=== PATIENT | male | born 1960 | race Caucasian/White ===

== ENCOUNTER 2017-10-08 09:58 | Emergency (ER) | payer SELFPAY ==
[~2017-10-08] VITALS: Ht 180.3 cm; Wt 100.0 kg
[2017-10-08 10:05] VITALS: BP 136/63; PULSE 76; RESP 16; TEMP 97.9; O2SAT 97
[2017-10-08] MEDS ORDERED: SODIUM CHLOR 0.9% 1000 ML INJ 1,000 ML IV SCH (10:20)
[2017-10-08] MEDS ORDERED: CLINDAMYCIN 900 MG/NS PREMIX 50 ML IV ONE (10:30)
[2017-10-08] MEDS ORDERED: SODIUM CHLORIDE 0.9% FLUSH 10 ML FLUSH IV FLUSH PRN (10:30)
[2017-10-08] MEDS ORDERED: KETOROLAC TROMETHAMINE 30 MG/ML (IVP) VIAL IVP ONE (10:30)
[2017-10-08 10:59] LABS: AUTOMATED NEUTROPHIL # 4.9 TH/MM3 (1.8-7.7); BASOPHIL % 0.4 % (0.0-2.0); EOSINOPHIL # 0.4 TH/MM3 (0-0.4); EOSINOPHIL % 4.9 % (0.0-4.0); HEMATOCRIT 39.8 % (39.0-51.0); HEMOGLOBIN 13.5 GM/DL (13.0-17.0); LYMPH % 19.8 % (9.0-44.0); LYMPHOCYTE # 1.4 TH/MM3 (1.0-4.8); MEAN CELL VOLUME 96.1 FL (80.0-100.0); MEAN CORPUSCULAR HEMOGLOBIN 32.6 PG (27.0-34.0); MEAN CORPUSCULAR HGB CONC 33.9 % (32.0-36.0); MEAN PLATELET VOLUME 8.1 FL (7.0-11.0); MONO % 7.3 % (0.0-8.0); MONOCYTE # 0.5 TH/MM3 (0-0.9); NEUT % 67.6 % (16.0-70.0); PLATELET COUNT 250 TH/MM3 (150-450); RED BLOOD COUNT 4.14 MIL/MM3 (4.50-5.90); RED CELL DISTRIBUTION WIDTH 12.9 % (11.6-17.2); WHITE BLOOD COUNT 7.2 TH/MM3 (4.0-11.0)
[2017-10-08 11:14] LABS: ALT (GPT) 19 U/L (12-78); AST (GOT) 11 U/L (15-37); BICARBONATE 23.1 MEQ/L (21.0-32.0); BLOOD UREA NITROGEN 10 MG/DL (7-18); CALCIUM 8.1 MG/DL (8.5-10.1); CHLORIDE 110 MEQ/L (98-107); CREATININE 1.04 MG/DL (0.60-1.30); GLOMERULAR FILTRATION RATE 74 ML/MIN (>89); GLUCOSE,RANDOM 137 MG/DL (74-106); SODIUM (NA) 142 MEQ/L (136-145)
[2017-10-08 11:16] LABS: ALKALINE PHOSPHATASE 100 U/L (45-117); TOTAL BILIRUBIN ADULT 0.6 MG/DL (0.2-1.0); TOTAL PROTEIN 6.7 GM/DL (6.4-8.2)
[2017-10-08] MEDS ORDERED: IBUP1TAB7 PO (11:30)
[2017-10-08] MEDS ORDERED: CEPH-460 PO (11:30)
[2017-10-08] MEDS ORDERED: BACT800T5 PO (11:30)
--- NOTE | 2017-10-08 11:36 | PD ---
HPI Chief Complaint: Pain: Acute or Chronic Time Seen by Provider: 10:20 Travel History International Travel<30 days: No Contact w/Intl Traveler<30days: No Traveled to known affect area: No History of Present Illness HPI 57-year-old male presents emergency department with pain, erythema, swelling, and warmth to the right posterior elbow over the past 4 days. Patient denies any specific injury. He states is just gotten worse over the past several days. Patient denies fever, chills, or drainage. No history of MRSA in the past. Patient states he is unable to extend the left arm completely secondary to discomfort. Pain is currently 7 out of 10. He has no weakness or loss of function. No numbness or tingling. He has no known drug allergies. PFSH Past Medical History Medical History: Denies Significant Hx Tetanus Vaccination: Unknown Influenza Vaccination: No Past Surgical History Surgical History: No Previous Surgery Social History Alcohol Use: No Tobacco Use: No Substance Use: No Allergies-Medications (Allergen,Severity, Reaction): Coded Allergies: No Known Allergies (Unverified , 10/08/17) Reported Meds & Prescriptions Reported Meds & Active Scripts Active Ibuprofen 800 Mg Tab 800 Mg PO Q8H PRN Keflex (Cephalexin) 500 Mg Capsule 500 Mg PO QID 7 Days Bactrim DS (Sulfamethoxazole-Trimethoprim) 800-160 Mg Tab 1 Tab PO BID Review of Systems Except as stated in HPI: all other systems reviewed are Neg General / Constitutional: No: Fever Eyes: No: Visual changes HENT: No: Headaches Cardiovascular: No: Chest Pain or Discomfort Respiratory: No: Shortness of Breath Gastrointestinal: No: Abdominal Pain Genitourinary: No: Dysuria Musculoskeletal: Positive: Limited ROM, Pain Skin: No Rash Neurologic: No: Weakness Psychiatric: No: Depression Endocrine: No: Polydipsia Hematologic/Lymphatic: No: Easy Bruising Physical Exam Narrative GENERAL: Patient appears in mild distress. SKIN: Warm and dry. Normal color. Normal turgor. Patient has an area of induration and erythema and warmth over the left olecranon. I do not feel that this is a deep abscess at this time. Patient also discussed with Dr. Hope who sees the patient as well and feels this is a localized cellulitis at this time. I&D not recommended. HEAD: Atraumatic. Normocephalic. EYES: Pupils equal and round. No scleral icterus. No injection or drainage. ENT: No nasal bleeding or discharge. Mucous membranes pink and moist. Pharynx is clear. Airway is patent. NECK: Trachea midline. Supple and nontender without lymphadenopathy. CARDIOVASCULAR: Regular rate and rhythm. RESPIRATORY: No accessory muscle use. Clear to auscultation. Breath sounds equal bilaterally. MUSCULOSKELETAL: Extremities without clubbing, cyanosis, or edema. No obvious deformities. Patient has tenderness along the left posterior elbow consistent with cellulitis. Range of motion of left elbow is limited secondary to pain only. Neurovascular exam is otherwise unremarkable. NEUROLOGICAL: Awake and alert. No obvious cranial nerve deficits. Motor grossly within normal limits. Five out of 5 muscle strength in the arms and legs. Normal speech. PSYCHIATRIC: Appropriate mood and affect; insight and judgment normal. Data Data Last Documented VS Vital Signs Date Time Temp Pulse Resp B/P (MAP) Pulse Ox O2 Delivery O2 Flow Rate FiO2 10/08/17 10:05 97.9 76 16 136/63 (87) 97 Orders Orders Complete Blood Count With Diff (10/08/17 10:20) Comprehensive Metabolic Panel (10/08/17 10:20) Iv Access Insert/Monitor (10/08/17 10:20) Ecg Monitoring (10/08/17 10:20) Oximetry (10/08/17 10:20) Sodium Chlor 0.9% 1000 Ml Inj (Ns 1000 M (10/08/17 10:20) Sodium Chloride 0.9% Flush (Ns Flush) (10/08/17 10:30) Ketorolac Inj (Toradol Inj) (10/08/17 10:30) Clindamycin 900 Mg/Ns Premix (Cleocin 90 (10/08/17 10:30) Labs Laboratory Tests Test 10/08/17 10:40 White Blood Count 7.2 TH/MM3 Red Blood Count 4.14 MIL/MM3 Hemoglobin 13.5 GM/DL Hematocrit 39.8 % Mean Corpuscular Volume 96.1 FL Mean Corpuscular Hemoglobin 32.6 PG Mean Corpuscular Hemoglobin Concent 33.9 % Red Cell Distribution Width 12.9 % Platelet Count 250 TH/MM3 Mean Platelet Volume 8.1 FL Neutrophils (%) (Auto) 67.6 % Lymphocytes (%) (Auto) 19.8 % Monocytes (%) (Auto) 7.3 % Eosinophils (%) (Auto) 4.9 % Basophils (%) (Auto) 0.4 % Neutrophils # (Auto) 4.9 TH/MM3 Lymphocytes # (Auto) 1.4 TH/MM3 Monocytes # (Auto) 0.5 TH/MM3 Eosinophils # (Auto) 0.4 TH/MM3 Basophils # (Auto) 0.0 TH/MM3 CBC Comment DIFF FINAL Differential Comment Blood Urea Nitrogen 10 MG/DL Creatinine 1.04 MG/DL Random Glucose 137 MG/DL Total Protein 6.7 GM/DL Albumin 3.0 GM/DL Calcium Level 8.1 MG/DL Alkaline Phosphatase 100 U/L Aspartate Amino Transf (AST/SGOT) 11 U/L Alanine Aminotransferase (ALT/SGPT) 19 U/L Total Bilirubin 0.6 MG/DL Sodium Level 142 MEQ/L Potassium Level 3.3 MEQ/L Chloride Level 110 MEQ/L Carbon Dioxide Level 23.1 MEQ/L Anion Gap 9 MEQ/L Estimat Glomerular Filtration Rate 74 ML/MIN [facility] Medical Decision Making Medical Screen Exam Complete: Yes Emergency Medical Condition: Yes Differential Diagnosis Left olecranon bursitis. Cellulitis. Left elbow pain. Early abscess. Narrative Course Patient is medically stable at time of exam. CBC and CMP are ordered. CBC is unremarkable without leukocytosis. CMP is essentially unremarkable. Patient is given 30 mg Toradol IV as well as 900 mg clindamycin IV Patient is felt stable for discharge at this time. I&D is not recommended at this time. Patient continued on Bactrim DS twice daily 7 days. Patient also placed on Keflex 500 mg 4 times daily #28. Patient also given ibuprofen 800 mg 3 times daily with food #30. Patient to follow-up if symptoms worsen as needed per Diagnosis Primary Impression: Cellulitis of left elbow Patient Instructions: Cellulitis (ED), General Instructions Additional Instructions: Patient is given 30 mg Toradol IV as well as 900 mg clindamycin IV Patient is felt stable for discharge at this time. I&D is not recommended at this time. Patient continued on Bactrim DS twice daily 7 days. Patient also placed on Keflex 500 mg 4 times daily #28. Patient also given ibuprofen 800 mg 3 times daily with food #30. Patient to follow-up if symptoms worsen as needed per Med/Other Pt SpecificInfo: Prescription(s) given Scripts Ibuprofen (Ibuprofen) 800 Mg Tab 800 MG PO Q8H Y for Pain/Inflammation, #60 TAB 0 Refills Prov: Rodolfo Hope MD 10/08/17 Cephalexin (Keflex) 500 Mg Capsule 500 MG PO QID for Infection for 7 Days, #28 CAP 0 Refills Prov: Rodolfo Hope MD 10/08/17 Sulfamethoxazole-Trimethoprim (Bactrim DS) 800-160 Mg Tab 1 TAB PO BID for Infection, #14 TAB 0 Refills Prov: Rodolfo Hope MD 10/08/17 Disposition: 01 DISCHARGE HOME Condition: Stable Vishal Menard Oct 08, 2017 11:36
== END 2017-10-08 12:04 | disposition home or self-care (01) ==
LOC: NEPD 09:58
DX: L03.114 Cellulitis of left upper limb (principal)
CPT/HCPCS: 80053; 85025; 96374; 96375; 99284; J1885; J7030